=== PATIENT | female | born 1965 | race Caucasian/White ===

== ENCOUNTER → 2016-10-27 | Outpatient (CLI) | payer MEDICAID ==
[~2016-10-27] MED LIST: ABILIFY10 MG OR; ABILIFY20 MG PO; ABILIFY5 MG PO; ACETAMINOPHEN325 M1 PO; ACYCLOVIR800 MG PO; AEROCHAMBER1 DEV IH; ALBUTEROL2 PUFFS/17 IN; AMITRIPTYLINE 225 MG PO; AMOXIL500 MG PO; APAP/BUTALBITAL1 TA1 PO; ATIVAN GENERIC0.5 MG PO; ATIVAN1 MG PO; AZITHROMYCIN250 MG PO; BACTRIM 400 MG-1 TAB PO; BACTRIM DS 8001 TA1 PO; BACTRIM DS 8001 TAB PO; BENADRYL25 M1 PO; BENZONATATE100 MG PO; CIPRO 500MG TA500 MG PO; CYCLOBENZ5 MG PO; CYCLOBENZAPRINE10 M1 OR; DARVOCET-N 1001 EACH PO; DIAZEPAM2 M1 PO; DICLOFENAC SODI75 M3 PO; EC NAPROSYN500 MG PO; ESCITALOPRAM20 MG PO; ETODOLAC400 MG PO; FLEXERIL10 MG PO; GABAPENTIN 600600 MG PO; ICY HOT1 CRE TP; KEFLEX 500MG.500 MG PO; LASIX20 MG PO; LISINOPRIL/HCTZ1 TA3 PO; LODINE200 MG PO; LORTAB 5/3251 TAB PO; LORTAB 5/500 501 TAB PO; LORTAB 500 MG-71 TAB; LOVASTATIN20 MG PO; MEDROL 4MG. DOSE4 MG PO; MELOXICAM7.5 MG PO; MOBIC7.5 MG PO; MOTRIN800 MG PO; NAPROSYN 500MG500 MG PO; NORCO 325 MG-51 TAB PO; ONDANSETRON8 MG PO; PHENERGAN 25MG.25 M1 PO; PHENTERMINE37.5 MG PO; PREDNISONE 10MG10 MG PO; PREDNISONE 20MG20 MG PO; PREDNISONE50 MG PO; ROBAXIN 500 MG500 MG PO; TESSALON PERLE100 M1 PO; TESSALON PERLE100 MG PO; TORADOL10 M1 PO; TRAMADOL 50MG T50 M1 PO; TRAMADOL 50MG T50 MG PO; ULTRAM 50 MG TA50 MG PO; ULTRAM50 MG PO; VIBRAMYCIN 100100 MG PO; VICODIN 5/500 T1 TAB PO; VISTARIL50 MG PO; VITAMIN D50000 IU PO; VOLTAREN75 MG PO; ZITHROMAX Z PA250 MG PO; ZOFRAN ODT4 MG PO; Zofran4 MG PO
--- NOTE | 2016-10-27 16:58 | RADIOLOGY REPORT PS360 ---
PROCEDURE: 2-D M-mode and color Doppler study INDICATIONS FOR THE TEST: Chest pain COPD Heart MurmurX Tobacco SmokingX Palpitations Fatigue Syncope Edema Hypertension Diabetes Mellitus Rheumatic Fever SOB STEVEN Obesity HyperlipidemiaXX Family History HD Additional History PATIENT INFORMATION HEIGHT: 64 WEIGHT:150 GENDER: Female B/P:119/74 2-D/M-MODE INTERPRETATION: 2-D MEASUREMENTS OBSERVED VALUES IN CMS Right Ventricular Dimension (RVDd) 1.9 Interventricular Septum (Thickness)(IVsd) 1.1 Left Ventricular Internal Dimensions(LVIDd) 4.9 Left Ventricular Posterior Wall (Thickness)(LVPWd) 1.0 Aortic Root 2.4 Aortic Cusp Separation 1.6 Left Atrial Dimensions (LAD) 3.2 2D 1. The left atrium is normal size, left ventricle is normal size, there is no concentric left ventricular hypertrophy, visually estimated ejection fraction 55% with no obvious regional wall motion abnormality. 2. The right atrium and right ventricle are normal size and contractility. 3. The aortic valve is minimally thickened and calcified there is no aortic stenosis. 4. The mitral and tricuspid valve is structurally normal. 5. The pulmonic valve is not well visualized. 6. No significant pericardial effusion noted. DOPPLER INTERROGATION: Doppler interrogation of the aortic mitral and tricuspid valvular presence of mild mitral and trace tricuspid regurgitation, tricuspid and enteric velocity insufficient for calculation of the right ventricular systolic pressure, diastolic parameters are within normal range. CONCLUSION: 1. Normal left ventricular size, preserved left ventricular systolic function, visually estimated ejection fraction of 55% with no obvious regional wall motion abnormality. Diastolic parameters are within normal range. 2. Mildly thickened and calcified aortic valve without aortic stenosis or aortic insufficiency. 3. Mild mitral and tricuspid regurgitation. 4. No significant pericardial effusion noted.
== END ==
LOC: RT 07:58
DX: R01.1 Cardiac murmur, unspecified (principal); E78.5 Hyperlipidemia, unspecified; Z72.0 Tobacco use

== ENCOUNTER → 2016-12-04 | Outpatient (CLI) | payer MEDICAID ==
[2016-12-04 16:49] LABS: AMPHETAMINES/METAMPHETAMINES NEGATIVE ng/mL (<1000)
== END ==
LOC: LAB 16:17
PROVIDERS: Nurse Practitioner Family
DX: Z79.899 Other long term (current) drug therapy (principal)

== ENCOUNTER 2017-05-29 21:54 | Emergency (ER) | payer SELFPAY ==
[~2017-05-29] VITALS: Ht 165.1 cm; Wt 68.0 kg
[2017-05-29] MEDS ORDERED: REQUIP 1 MG TABL1 MG FT (22:08)
[2017-05-29 22:19] LABS: HEMOGLOBIN 12.9 g/dL (12.2-16.2); LYMPH # 3.3 K/mm3 (0.7-4.5); LYMPH % 43.1 % (10-50.0)
[2017-05-29 22:20] LABS: URINE BILIRUBIN - DIPSTICK NEGATIVE (NEG); URINE BLOOD NEGATIVE (NEG)
--- OUTSIDE RECORDS SUMMARY | 2017-05-29 22:22 | External Medical Summary Rpt | CCD ---
Author Author , DIVYA STOKES Address Unknown Phone [email or web address] Care Team Providers Care Linderman Machine Operator Name Role Phone Lius Gomez MD, Unavailable Unavailable Luis LIRA MD, Unavailable Unavailable JENNA Summers MD, Unavailable Unavailable Jaren NARANJO, Unavailable Unavailable JAIRO Naranjo Unavailable Unavailable MELITON [facility], Jairo Naranjo III, MD Purpose Continuity of Care Document - 09-04-2012 through 2016 Problems Code Diagnosis DOS Provider Status 305.1 305.1 07-23-2013 [place] TOBACCO USE [facility] 401.9 401.9 07-23-2013 [place] HYPERTENSIO [facility] N [facility] 790.8 790.8 07-23-2013 [place] VIREMIA NOS [facility] V14.8 V14.8 07-23-2013 [place] HX-DRUG [facility] ALLERGY [facility] 724.3 724.3 07-09-2013 [place] SCIATICA [facility] 272.4 272.4 05-17-2013 [place] HYPERLIPIDE [facility] NEC/NOS Hospital 413.9 413.9 05-17-2013 [place] ANGINA [facility] PECTORIS [facility] NEC/NOS 784.0 784.0 05-17-2013 [place] HEADACHE [facility] V58.69 V58.69 OTH 05-17-2013 [place] MED,LT,YAN [facility] ENT USE Hospital 311 311 02-13-2013 [place] DEPRESSIVE [facility] DISORDER [facility] 719.45 719.45 02-13-2013 [place] JOINT [facility] PAIN-PELVIS Hospital 558.9 558.9 01-27-2013 [place] NONINF [facility] V14.5 V14.5 01-27-2013 [place] HX-NARCOTIC [facility] 789.01 789.01 10-10-2012 [place] ABDOMINAL [facility] PAIN, RIGHT Hospital UPPER QUADRANT 461.9 461.9 ACUTE 10-02-2012 [place] SINUSITIS [facility] 491.22 491.22 10-02-2012 [place] OBSTRUCTIVE [facility] CHRONIC [facility] BRONCHITIS WITH ACUTE BRONCHITIS 729.5 729.5 PAIN 09-04-2012 [place] IN LIMB [facility] G50.0 TRIGEMINAL NEURALGIA N23 UNSPECIFIED RENAL COLIC N39.0 URINARY TRACT INFECTION, SITE NOT SPECIFIED R20.0 ANESTHESIA OF SKIN Allergies, Adverse Reactions, Alerts Type Drug Allergy Adverse Reaction to Substance Substance Reaction Severity Codeine Z-[id number]/THROAT Severe Medications Na ND Rx Da Fi Fi Am Da Di Ph RX Ph St me C No te ll ll ou ys ag ar # ys at rm s nt no ma ic us Or Da si cy ia de te s n re d IN 51 12 0 No DO 07 -2 ME 90 8- Lo TH 19 20 ng AC 02 13 er IN 0 Ac 25 ti ve MG CA PS UL E AP 00 12 0 No AP 40 -2 /H 60 8- Lo YD 36 20 ng RO 56 13 er CO 2 DO Ac NE ti ve 32 5 MG -5 MG KE 00 11 0 No TO 40 -0 RO 93 5- Lo LA 79 20 ng C 50 13 er 30 1 Ac MG ti /M ve L AL TR 00 11 0 No AM 09 -0 AD 30 5- Lo OL 05 20 ng 80 13 er 50 1H MG Ac ti TA ve BL ET TA KE HO ME NC 50 08 0 No ED 38 -0 NI 30 4- Lo SO 04 20 ng LO 22 13 er NE 4 Ac 15 ti ve MG /[address] TR 00 08 0 No AM 09 -0 AD 30 4- Lo OL 05 20 ng 80 13 er 50 1H MG Ac ti TA ve BL ET TA KE HO ME NC 00 04 0 No ED 05 -0 NI 40 6- Lo SO 01 20 ng NE 82 13 er 0 20 Ac ti MG ve TA BL ET AP 00 04 0 No AP 40 -0 /H 60 6- Lo YD 36 20 ng RO 56 13 er CO 2 DO Ac NE ti ve 32 5 MG -5 MG MA 00 03 0 No PA 90 -3 P 41 1- Lo 32 98 20 ng 5 26 13 er MG 1 Ac TA ti BL ve ET HY [address] 07 -3 OC 90 1- Lo OD 78 20 ng ON 09 13 er E/ 9H AP Ac AP ti ve 5/ 50 0M G TA KE AZ 59 03 0 No IT 76 -2 HR 23 3- Lo OM 06 20 ng YC 00 13 er IN 3 Ac 25 ti 0 ve MG TA BL ET Vital Signs 07-23-2013 15:45 Name Value Interpretat Reference Comment ion Range Body 98.5 [degF] Temperature BP 105 mm[Hg] Diastolic BP Systolic 145 mm[Hg] Heart 95 /min Rate/Pulse O2% 95 % Respiratory 20 /min Rate 07-23-2013 15:13 Name Value Interpretat Reference Comment ion Range BP 68 mm[Hg] Diastolic BP Systolic 104 mm[Hg] Heart 95 /min Rate/Pulse O2% 93 % Respiratory 20 /min Rate 07-09-2013 16:00 Name Value Interpretat Reference Comment ion Range BP 82 mm[Hg] Diastolic BP Systolic 129 mm[Hg] Heart 92 /min Rate/Pulse O2% 95 % Respiratory 20 /min Rate 05-17-2013 22:50 Name Value Interpretat Reference Comment ion Range Body 98.6 [degF] Temperature BP 75 mm[Hg] Diastolic BP Systolic 159 mm[Hg] Heart 82 /min Rate/Pulse O2% 95 % Respiratory 20 /min Rate 05-17-2013 22:06 Name Value Interpretat Reference Comment ion Range BP 75 mm[Hg] Diastolic BP Systolic 159 mm[Hg] Heart 82 /min Rate/Pulse O2% 95 % Respiratory 20 /min Rate 02-13-2013 19:35 Name Value Interpretat Reference Comment ion Range BP 94 mm[Hg] Diastolic BP Systolic 132 mm[Hg] Heart 75 /min Rate/Pulse O2% 98 % Respiratory 16 /min Rate 02-13-2013 18:17 Name Value Interpretat Reference Comment ion Range BP 78 mm[Hg] Diastolic BP Systolic 128 mm[Hg] Heart 77 /min Rate/Pulse O2% 97 % Respiratory 20 /min Rate 01-27-2013 09:47 Name Value Interpretat Reference Comment ion Range BP 57 mm[Hg] Diastolic BP Systolic 114 mm[Hg] Heart 92 /min Rate/Pulse O2% 94 % Respiratory 20 /min Rate 10-16-2012 22:12 Name Value Interpretat Reference Comment ion Range Body 98.1 [degF] Temperature BP 77 mm[Hg] Diastolic BP Systolic 127 mm[Hg] Heart 90 /min Rate/Pulse O2% 98 % Respiratory 18 /min Rate 10-16-2012 22:03 Name Value Interpretat Reference Comment ion Range BP 77 mm[Hg] Diastolic BP Systolic 127 mm[Hg] Heart 90 /min Rate/Pulse O2% 98 % Respiratory 18 /min Rate 10-10-2012 03:06 Name Value Interpretat Reference Comment ion Range BP 94 mm[Hg] Diastolic BP Systolic 135 mm[Hg] Heart 97 /min Rate/Pulse O2% 96 % Respiratory 20 /min Rate 10-10-2012 02:03 Name Value Interpretat Reference Comment ion Range BP 70 mm[Hg] Diastolic BP Systolic 114 mm[Hg] Heart 98 /min Rate/Pulse O2% 97 % Respiratory 20 /min Rate 10-02-2012 00:28 Name Value Interpretat Reference Comment ion Range Body 98.8 [degF] Temperature BP 89 mm[Hg] Diastolic BP Systolic 147 mm[Hg] Heart 102 /min Rate/Pulse O2% 96 % Respiratory 16 /min Rate 10-01-2012 22:02 Name Value Interpretat Reference Comment ion Range Body 98.9 [degF] Temperature BP 92 mm[Hg] Diastolic BP Systolic 133 mm[Hg] Heart 91 /min Rate/Pulse O2% 97 % Respiratory 16 /min Rate 09-04-2012 10:48 Name Value Interpretat Reference Comment ion Range BP 82 mm[Hg] Diastolic BP Systolic 127 mm[Hg] Heart 105 /min Rate/Pulse O2% 96 % Respiratory 20 /min Rate Results Labs Lab Lab Date Result Refere Interp Status Commen Order Detail nces retati t Range on Bacteria Ur Cult (02-16-2017 16:11) Bacteri [id number] complet a XXX 017 07 ed Anaerob 16:11 Escheri e+Aerob sushila e Cult coli (organi sm) SCT ECOL ESCHERI SUSHILA COLI L Comment: >100,000 cfu/ml Escherichia coli (organism) CC XXX NOTAP complet VC-aCnc 017 NOT ed 16:11 APPLICA BLE L Drugs identified in Urine by Screen method (12-04-2016 13:51) Ampheta NEGATIV <1000 complet mine 017 E ed [Presen 13:51 ce] in Urine by Screen method 11-Hydr NEGATIV <50 complet oxy 017 E ed delta-9 13:51 tetrahy drocann abinol [Presen ce] in Unspeci fied specime n URINALYSIS/COMPLETE (07-09-2013 15:07) URINE YELLOW YELLOW complet COLOR 013 ed 15:07 URINE Sl CLEAR complet APPEARA 013 Cloudy ed NCE 15:07 URINE NEGATIV NEG complet GLUCOSE 013 E ed - 15:07 DIPSTIC K URINE NEGATIV NEG complet BILIRUB 013 E ed IN - 15:07 DIPSTIC K URINE NEGATIV NEG complet KETONE 013 E mg/dL ed 15:07 URINE 1.025 1.005-1 complet SPECIFI 013 UNK .030 ed C 15:07 GRAVITY URINE NEGATIV NEG complet BLOOD 013 E ed 15:07 URINE 6.0 UNK 5.0-8.5 complet PH 013 ed 15:07 URINE NEGATIV NEG complet PROTEIN 013 E mg/dL ed - 15:07 DIPSTIC K URINE 0.2 NEG complet UROBILI 013 E.U./dL ed NOGEN - 15:07 DIPSTIC K URINE NEGATIV NEG complet NITRATE 013 E ed - 15:07 DIPSTIC K URINE NEGATIV NEG complet LEUK 013 E ed ESTERAS 15:07 E URINE OCC 0-5 complet SQUAMOU 013 #/hpf ed S CELLS 15:07 URINE TRACE O complet BACTERI 013 ed A 15:07 CBC with AUTO DIFF (05-17-2013 22:15) WBC # 05-17- 8.8 4.8-10. complet Bld 013 K/MM3 8 ed Auto 22:15 RBC # 4.77 4.2-5.4 complet Bld 013 M/mm3 ed Auto 22:15 Hgb 13.7 12.2-16 complet Bld-mCn 013 g/dL .2 ed c 22:15 Hct Fr 41.4 % 37.0-47 complet Bld 013 .0 ed 22:15 MCV RBC 86.9 fl 82.2-97 complet 013 .8 ed 22:15 MCH RBC 11-05-2 28.7 pg 27-31.2 complet Qn 013 ed Auto 22:15 MEAN 11-05-2 33.1 31.8-35 complet CORPUSC 013 g/dl .4 ed ULAR 22:15 HGB CONC RDW RBC -05-2 14.9 % 11.5-17 complet Auto 013 .5 ed 22:15 Platele 11-05-2 243 142-424 complet t Bld 013 K/mm3 ed Ql 22:15 Manual MEAN 05-2 8.7 fl 7.4-10. complet PLATELE 013 4 ed T 22:15 VOLUME Granulo 11-05-2 59.6 % 37.0-80 complet cytes 013 .0 ed Fr Bld 22:15 Auto LYMPH % 11-05-2 32.8 % 10-50.0 complet 013 ed 22:15 Monocyt 11-05-2 4.3 % 1.7-9.3 complet es Fr 013 ed Bld 22:15 Auto Eosinop 11-05-2 2.6 % 0.1-12. complet hil Fr 013 0 ed Bld 22:15 Auto Basophi 11-05-2 0.7 % 0.1-2.0 complet ls Fr 013 ed Bld 22:15 Auto Granulo 11-05-2 5.3 1.8-7.8 complet cytes # 013 K/mm3 ed Bld 22:15 Auto Lymphoc 11-05-2 2.9 0.7-4.5 complet ytes Fr 013 K/mm3 ed Bld 22:15 Auto Monocyt 11-05-2 0.4 0.1-1.0 complet es # 013 K/mm3 ed Bld 22:15 Auto Eosinop 11-05-2 0.2 0.0-0.4 complet hil # 013 K/mm3 ed Bld 22:15 Auto Basophi 11-05-2 0.1 0-0.2 complet ls # 013 K/MM3 ed Bld 22:15 Auto URINALYSIS/COMPLETE (10-10-2012 02:00) URINE YELLOW YELLOW complet COLOR 013 ed 02:00 URINE CLOUDY CLEAR complet APPEARA 013 ed NCE 02:00 URINE NEGATIV NEG complet GLUCOSE 013 E ed - 02:00 DIPSTIC K URINE NEGATIV NEG complet BILIRUB 013 E ed IN - 02:00 DIPSTIC K URINE NEGATIV NEG complet KETONE 013 E mg/dL ed 02:00 URINE 1.020 1.005-1 complet SPECIFI 013 UNK .030 ed C 02:00 GRAVITY URINE NEGATIV NEG complet BLOOD 013 E ed 02:00 URINE 6.0 UNK 5.0-8.5 complet PH 013 ed 02:00 URINE NEGATIV NEG complet PROTEIN 013 E mg/dL ed - 02:00 DIPSTIC K URINE 0.2 NEG complet UROBILI 013 E.U./dL ed NOGEN - 02:00 DIPSTIC K URINE NEGATIV NEG complet NITRATE 013 E ed - 02:00 DIPSTIC K URINE NEGATIV NEG complet LEUK 013 E ed ESTERAS 02:00 E URINE 20-50 0-5 complet SQUAMOU 013 #/hpf ed S CELLS 02:00 BASIC METABOLIC PANEL (10-10-2012 01:30) Glucose 111 74-106 complet 013 mg/dL ed Bld-mCn 01:30 c BUN 9 mg/dL 7-18 complet Bld-mCn 013 ed c 01:30 Creat 0.9 0.6-1.0 complet SerPl-m 013 mg/dL ed Cnc 01:30 ESTIMAT 94 50-200 complet ED 013 ML/MIN ed CREATIN 01:30 INE CLEARAN CE GFR 67 59- complet (ESTIMA 013 ML/MIN ed SONDRA) 01:30 Sodium 139 136-145 complet SerPl-s 013 mmoL/L ed Cnc 01:30 Potassi 3.8 3.5-5.1 complet um 013 mmoL/L ed SerPl-s 01:30 Cnc Chlorid 104 98-107 complet e 013 mmoL/L ed SerPl-s 01:30 Cnc CO2 27 21.0-32 complet SerPl-s 013 mmoL/L .0 ed Cnc 01:30 Calcium 10-10-2 8.9 8.5-10. complet 013 mg/dL 1 ed SerPl-m 01:30 Cnc LIVER PROFILE (10-10-2012 01:30) Prot 10-10-2 7.0 6.4-8.2 complet SerPl-m 013 gm/dL ed Cnc 01:30 Albumin 31-2 3.4 3.4-5.0 complet 013 gm/dL ed SerPl-m 01:30 Cnc Bilirub -31-2 0.2 0.2-1.0 complet 013 mg/dL ed SerPl-m 01:30 Cnc Bilirub 31-2 Less 0.0-0.2 complet Direct 013 than ed 01:30 0.1 SerPl-m mg/dL Cnc BILIRUB 10-10-2 0.2 0-0.9 complet IN, 013 mg/dL ed INDIREC 01:30 T AST 10-10-2 27 U/L 15-37 complet SerPl-c 013 ed Cnc 01:30 ALT 10-10-2 41 U/L 30-65 complet SerPl-c 013 ed Cnc 01:30 ALP 10-10-2 172 U/L 50-136 complet SerPl-c 013 ed Cnc 01:30 Amylase SerPl-cCnc (10-10-2012 01:30) Amylase 10-10-2 38 U/L 25-115 complet 013 ed SerPl-c 01:30 Cnc LIPASE (10-10-2012 01:30) LIPASE 10-10-2 257 U/L 73-393 complet 013 ed 01:30 CBC with AUTO DIFF (10-10-2012 01:30) WBC # 10-10-2 10.6 4.8-10. complet Bld 013 K/MM3 8 ed Auto 01:30 RBC # 10-10-2 4.85 4.2-5.4 complet Bld 013 M/mm3 ed Auto 01:30 Hgb 10-10-2 14.5 12.2-16 complet Bld-mCn 013 g/dL .2 ed c 01:30 Hct Fr 10-10- 43.1 % 37.0-47 complet Bld 013 .0 ed 01:30 MCV RBC 10-10-2 88.8 fl 82.2-97 complet 013 .8 ed 01:30 MCH RBC 03-31-2 29.8 pg 27-31.2 complet Qn 013 ed Auto 01:30 MEAN 10-10-2 33.6 31.8-35 complet CORPUSC 013 g/dl .4 ed ULAR 01:30 HGB CONC RDW RBC 31-2 14.2 % 11.5-17 complet Auto 013 .5 ed 01:30 Platele 31-2 335 142-424 complet t Bld 013 K/mm3 ed Ql 01:30 Manual MEAN 10-10-2 8.2 fl 7.4-10. complet PLATELE 013 4 ed T 01:30 VOLUME Granulo 31-2 58.1 % 37.0-80 complet cytes 013 .0 ed Fr Bld 01:30 Auto LYMPH % -31-2 34.1 % 10-50.0 complet 013 ed 01:30 Monocyt -31-2 5.4 % 1.7-9.3 complet es Fr 013 ed Bld 01:30 Auto Eosinop -31-2 1.8 % 0.1-12. complet hil Fr 013 0 ed Bld 01:30 Auto Basophi -31-2 0.6 % 0.1-2.0 complet ls Fr 013 ed Bld 01:30 Auto Granulo -31-2 6.2 1.8-7.8 complet cytes # 013 K/mm3 ed Bld 01:30 Auto Lymphoc -31-2 3.6 0.7-4.5 complet ytes Fr 013 K/mm3 ed Bld 01:30 Auto Monocyt -31-2 0.6 0.1-1.0 complet es # 013 K/mm3 ed Bld 01:30 Auto Eosinop -31-2 0.2 0.0-0.4 complet hil # 013 K/mm3 ed Bld 01:30 Auto Basophi -31-2 0.1 0-0.2 complet ls # 013 K/MM3 ed Bld 01:30 Auto Encounters Encounter Start End Date Code Location Performer Type Date Emergency ELLA LIRA MD (ER) 4 14:44 4 15:48 [facility] ELLA Summers MD (ER) 3 15:08 3 16:01 [facility] ELLA Summers MD (ER) 3 22:12 3 22:50 [facility] ELLA Summers MD (ER) 3 17:36 3 19:38 [facility] ELLA Gomez MD (ER) 3 09:51 3 09:51 [facility] Emergency ELLA Summers MD (ER) 3 20:43 3 22:14 [facility] ELLA Summers MD (ER) 3 01:10 3 03:07 [facility] ELLA Naranjo (ER) 3 22:24 3 00:29 [facility] Emergency ELAL NARANJO (ER) 3 10:23 3 10:49 [facility]
--- OUTSIDE RECORDS SUMMARY | 2017-05-29 22:22 | External Medical Summary Rpt | CCD ---
Author Author , DIVYA STOKES Address Unknown Phone [email or web address] Care Team Providers Care Automobile Brakes Bonder Name Role Phone Luis Gomez MD, Unavailable Unavailable Luis LIRA MD, Unavailable Unavailable JENNA Summers MD, Unavailable Unavailable Jaren NARANJO, Unavailable Unavailable JAIRO Naranjo Unavailable Unavailable MELITON [facility], Jairo Naranjo III, MD Purpose Continuity of Care Document - 09-04-2012 through 2016 Problems Code Diagnosis DOS Provider Status 305.1 305.1 07-23-2013 [place] TOBACCO USE [facility] 401.9 401.9 07-23-2013 [place] HYPERTENSIO [facility] N [facility] 790.8 790.8 07-23-2013 [place] VIREMIA NOS [facility] V14.8 V14.8 07-23-2013 [place] HX-DRUG [facility] ALLERGY [facility] 724.3 724.3 07-09-2013 [place] SCIATICA [facility] 272.4 272.4 05-17-2013 [place] HYPERLIPIDE [facility] NEC/NOS Hospital 413.9 413.9 05-17-2013 [place] ANGINA [facility] PECTORIS [facility] NEC/NOS 784.0 784.0 05-17-2013 [place] HEADACHE [facility] V58.69 V58.69 OTH 05-17-2013 [place] MED,LT,YAN [facility] ENT USE Hospital 311 311 02-13-2013 [place] DEPRESSIVE [facility] DISORDER [facility] 719.45 719.45 02-13-2013 [place] JOINT [facility] PAIN-PELVIS Hospital 558.9 558.9 01-27-2013 [place] NONINF [facility] V14.5 V14.5 01-27-2013 [place] HX-NARCOTIC [facility] 789.01 789.01 10-10-2012 [place] ABDOMINAL [facility] PAIN, RIGHT Hospital UPPER QUADRANT 461.9 461.9 ACUTE 10-02-2012 [place] SINUSITIS [facility] 491.22 491.22 10-02-2012 [place] OBSTRUCTIVE [facility] CHRONIC [facility] BRONCHITIS WITH ACUTE BRONCHITIS 729.5 729.5 PAIN 09-04-2012 [place] IN LIMB [facility] G50.0 TRIGEMINAL NEURALGIA N23 UNSPECIFIED RENAL COLIC N39.0 URINARY TRACT INFECTION, SITE NOT SPECIFIED R20.0 ANESTHESIA OF SKIN Allergies, Adverse Reactions, Alerts Type Drug Allergy Adverse Reaction to Substance Substance Reaction Severity Codeine [id number]-[id number]-SYHP/THROAT Severe Medications Na ND Rx Da Fi [...] ve BL ET TA KE HO ME TX 50 08 0 No ED 38 -0 NI 30 4- Lo SO 04 20 ng LO 22 13 er NE 4 Ac 15 ti ve MG /[address] TR 00 08 0 No AM 09 -0 AD 30 4- Lo OL 05 20 ng 80 13 er 50 1H MG Ac ti TA ve BL ET TA KE HO ME TX 00 04 0 No ED 05 -0 [...] on Bacteria Ur Cult (02-16-2017 16:11) Bacteri [id number] complet a XXX 017 07 ed Anaerob [...] LIRA MD (ER) 4 14:44 4 15:48 [facility] Emergency ELLA Summers MD (ER) 3 15:08 3 16:01 [facility] ELLA Summers MD (ER) 3 22:12 3 22:50 [facility] ELLA Summers MD (ER) 3 17:36 3 19:38 [facility] ELLA Gomez MD (ER) 3 09:51 3 09:51 [facility] Emergency ELLA Summers MD (ER) 3 20:43 3 22:14 [facility] ELLA Summers MD (ER) 3 01:10 3 03:07 [facility] ELLA Naranjo (ER) 3 22:24 3 00:29 [facility] ELLA NARANJO (ER) 3 10:23 3 10:49 [facility]
--- OUTSIDE RECORDS SUMMARY | 2017-05-29 22:23 | External Medical Summary Rpt ---
Author Author DIVYA Sharlene, DIVYA Pl[employer] Organization [employer] Address Unknown Phone Unavailable Results Drugs identified in Urine by Screen method Observa Value Referen Units Interpr Notes Date tion ce etation Range Positive urine drug screen samples are stored for 7 days. Contact the Lab if confirmation of positives is needed. Ampheta NEGATIV <1000 ng/mL No No December 04 mine E informa informa 2016 [Presen tion in tion in 1:51 PM ce] in source source Urine data data by Screen method Barbitura <200 ng/mL No No December 04 demarcus informati informati 2016 1:51 [Mass/vol on in on in PM ume] in source source Urine by data data Screen method Benzodiaz 200 ng/mL ng/mL High This is December 04 epines an 2017 1:51 [Mass/vol UNCONFIRM PM ume] in ED Serum or result. Plasma by This Screen result is method for medicalpu rposes and/or treatment only. Cocaine <300 ng/g No No December 04 [Mass/vol informati informati 2016 1:51 ume] in on in on in PM Unspecifi source source ed data data specimen Methadone <300 ng/mL No No December 04 informati informati 2016 1:51 [Mass/vol on in on in PM ume] in source source Unspecifi data data ed specimen Opiates <300 ng/mL No No December 04 [Mass/vol informati informati 2016 1:51 ume] in on in on in PM Unspecifi source source ed data data specimen Phencycli <25 ng/mL No No December 04 dine informati informati 2016 1:51 [Mass/vol on in on in PM ume] in source source Unspecifi data data ed specimen 11-Hydr NEGATIV <50 ng/mL No No December 04 oxy E informa informa 2017 delta-9 tion in tion in 1:51 PM source source tetrahy data data drocann abinol [Presen ce] in Unspeci fied specime n
--- OUTSIDE RECORDS SUMMARY | 2017-05-29 22:23 | External Medical Summary Rpt | CCD ---
Author Author [employer] Organization [employer] Address Unknown Phone Unavailable Purpose Continuity of Care Document - through 2016
--- OUTSIDE RECORDS SUMMARY | 2017-05-29 22:23 | External Medical Summary Rpt | CCD ---
Demographics Preferred Language Vietnamese Marital Status Unknown Confucianist Affiliation Unknown Race Unknown Ethnic Group Unknown Author Author , DIVYA STOKES Address Unknown Phone Immunization No patient found.
--- OUTSIDE RECORDS SUMMARY | 2017-05-29 22:23 | External Medical Summary Rpt ---
Author Author DIVYA Sharlene, DIVYA [place] [employer] Organization [employer] Address Unknown Phone Unavailable [...]
--- OUTSIDE RECORDS SUMMARY | 2017-05-29 22:23 | External Medical Summary Rpt | CCD ---
Demographics Preferred Language Kinyarwanda Marital Status Unknown Buddhist Affiliation Unknown Race Unknown Ethnic Group Unknown Author Author , DIVYA STOKES Address Unknown Phone Immunization No patient found.
--- NOTE | 2017-05-29 22:30 | Emergency Room Report ---
History of Present Illness Time Seen by [id number] Presenting Problem in Triage Pt arrived:Walked Presenting Problem:C/O KIDNEY PAIN, PT STATES SHE HAS INFLAMMED RT KIDNEY AND HER URETHRA IS TWISTED, PT HAS BEEN SEEN BY DR WRAY AND UROLOGY FOR THIS PROBLEM. 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 N Clinical Suspician of Infection? N Mental Status: 1 - Regular (Normal Baseline) Sepsis Risk:Low Sepsis Risk Have you (or family members/close friends) recently traveled outside the [place]? N If Yes, where/when: Have you had exposure to infectious disease within the past month? N TB? Other? Specify: Source patient, RN notes reviewed, family, old records Exam Limitations no limitations Comment hx of rt flank pain with renal colic - pt with no fever and hematuria Cardiac Chest Pain Chest pain indicative of cardiac No Timing/Duration this evening Severity moderate ALLERGIES Coded Allergies: codeine (Intermediate, I-RASH 08/12/16) Home Medications Reported Medications Diazepam 2 MG PO BID #60 ROPINIROLE HCL (Requip 1 Mg) 1 MG FT DAILY History Medical History General CAD? No Angina: No ND: No Hypertension? No Hyperlipidemia? Yes CHF? No DVT? No PE? No COPD? No Asthma? No Anemia? No GERD? No Gastric ulcers? No GI Bleed? No Hernia? No Thyroid Problems? No Hypothyroidism? No CVA? No Seizures? No Diabetes? No Insulin Dependent: No Insulin Pump: No Home FSBS? No Renal Insuffiency? No End Stage Renal Disease? No UTI? Yes Stones? Yes BPH? No GB Disease: Yes Nephritic Syndrome? No Asplenia? No Hepatitis? No Sickle Cell Disease? No Arthritis? No Migraines? No Cataracts? No Glaucoma? No MRSA? No HIV? No TB? No Anxiety? Yes Depression? Yes Cancer? No More? No Immunization Hx Ped.Immunizations UTD No DT/Tetanus 5-10 Years Ago Flu 2015-FSN Pneumonia Never Had Surgical Hx Previous Surgery?Y Tubal Ligation D AND C GALLBLADDER REMOVED HYSTERECTOMY Appendix REMOVED HEART CATH 10/2009 LESION EXCISION URINARY STENT RENAL STENT 08/07/16 [employer] Hx LMP N/A Family History Family Hx Diabetes Yes CAD Yes Hypertension Yes Hyperlipidemia Yes Cancer Yes TB No Social History Smoking Hx Smoker: Current Every Day Smoker Tobacco: Yes Type Cigarettes Packs/day < 1 Pack Are you/the child exposed to second-hand smoke: No Alcohol Alcohol: No Drugs none Review of Systems All Other Systems Reviewed and Negative Constitutional denies fever Eyes denies drainage ENT denies: ear pain, epistaxis, throat pain. Respiratory denies cough, denies shortness of breath, denies wheezing Cardiovascular denies chest pain, denies palpitations, denies syncope Gastrointestinal denies abdominal pain, denies diarrhea, denies vomiting Genitourinary see HPI. denies: dysuria, frequency, hesitancy, hematuria. Musculoskeletal denies back pain, denies neck pain Skin denies rash Psychiatric/Neurological denies headache, denies seizure Physical Exam Vital Signs Vital Signs Date Time Temp Pulse Resp B/P Pulse O2 O2 Flow FiO2 Ox Delivery Rate 05/29 2159 98.7 72 20 135/80 97 - WBC >12,000 or <4,000 or 10% bands? 2 or more SIRS Criteria Met? B/P:135/80 MAP:98 Creatinine >2.0? UA output<0.5ml/kg/hr for 2 hrs? Platelet count >100,000? Lactate >2.0mmol/1? INR >1.2 or PTT > than 60 sec? Evidence of Organ Dysfunction? Provider documented clinical suspician of infection? N Sepsis Criteria Count: 1 Sepsis Risk: Low Sepsis Risk General Appearance no apparent distress Eye Exam - bilateral eye PERRL, bilateral eye EOMI Ear, Nose, Throat normal ENT inspection Neck supple Respiratory Status No: respiratory distress. 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 No Results/Orders Laboratory Tests 05/29/17 2210: Sodium 140, Potassium 3.3 L, Chloride 104, Carbon Dioxide 30, BUN 13, Creatinine 0.8, Estimated Creat Clear 88, Estimated GFR (MDRD) 75, Glucose 89, Calcium 9.2, Total Bilirubin 0.4, AST 23, ALT 28, Alkaline Phosphatase 114, Total Protein 7.5, Albumin 3.9, Globulin 3.6 H, Albumin/Globulin Ratio 1.1, WBC 7.7, RBC 4.30, Hgb 12.9, Hct 39.3, MCV 91.5, RDW 13.0, Plt Count 201, MPV 8.7, Gran % 46.3, Gran # 3.6, Lymphocytes % 43.1, Monocytes % 5.4, Eosinophils % 4.4, Basophils % 0.7, Lymphocytes # 3.3, Monocytes # 0.4, Eosinophils # 0.3, Basophils # 0.1, PUBS MCHC 32.8, MCH 30.0, Urine Color YELLOW, Urine Appearance CLEAR, Urine pH 7.5, Ur Specific [place] 1.010, Urine Protein NEGATIVE, Urine Ketones NEGATIVE, Urine Blood NEGATIVE, Urine Nitrate NEGATIVE, Urine Bilirubin NEGATIVE, Urine Urobilinogen 0.2, Ur Leukocyte Esterase NEGATIVE, Urine WBC 3-5, Ur Squamous Epith Cells 5-10, Urine Glucose NEGATIVE Current Medication Orders Sig/Ramya Start time Last Medication Dose Route Stop Time Status Admin Sodium Chloride 10 ML PRN PRN 05/29 2215 AC IV 05/30 2211 Orders Procedure Date/time Status DIET-NOTHING BY MOUTH 05/[address] ABD & PELVIS W/O CONTRAST 05/[address] ABD/PELVIS REQ 05/29 2211 Active IV SALINE LOCK 05/29 2211 Active URINALYSIS/COMPLETE 05/29 2211 Complete CBC WITH AUTO DIFF 05/29 2211 Complete CHEM 12 PROFILE 05/29 2211 Complete XRAY/CT/US XRAY/CT/US CT abdomen, pelvis CT interpretation by discussed w/radiologist Time results known: 2317 CT Results abnormal (dil rt urethral) Departure Departure Time of Disposition 2244 Disposition DC Home or Self Care(routine) Clinical Impression Primary Impression: Renal colic on right side Condition STABLE Referrals Miguel A Layne APRN (Family) Patient Instructions Kidney Stones -- Adult Additional Instructions use meds and see urology Discharge Counseling Counseled pt/family regarding diagnosis, test results, medications/RX, follow up needs ED Critical Care Critical Care No at [id number]
[2017-05-29 23:26] VITALS: BP 135/80
--- NOTE | 2017-05-30 10:30 | RADIOLOGY REPORT PS360 ---
CT ABD PELVIS W/O CONTRAST HISTORY: FLANK PAIN FLANK PAIN right flank pain Patient Age: 52 years: Female Ordering Physician: Jaren Summers MD TECHNIQUE: Helical CT scanning performed the abdomen and pelvis with no oral nor IV contrast utilized. Sagittal and coronal reconstructions on CT workstation COMPARISON :10/07/2016 CT abdomen and pelvis without contrast ... Also March 2016 CT abdomen FINDINGS Lower thorax. Lungs clear with nothing definitely acute. Small benign Calcified granulomas at right lung base noted . Heart normal size Abdomen/pelvis.Lack of IV and oral contrast decreases sensitivity Liver. No focal lesions. Slightly dense liver: On this Noncontrast study but does warrant correlation with LFTs and follow-up. I would typically liver average density is 55HU. This patient liver density up to 71. Nonspecific but can be seen with iron storage abnormalities liver Spleen unremarkable. Pancreas unremarkable on this noncontrast study. Gallbladder is been removed. No biliary ductal dilatation. Right kidney. 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 Right ureter only a solitary generous in caliber throughout similar to previous studies. No new findings otherwise today Left kidney. No calculi. No change since 2015. Pelvis. Uterus is been removed. Bladder unremarkable. GI tract. Moderate stool throughout the colon but no bowel dilatation or obstruction. There may be a few scattered diverticuli throughout the colon but no diverticulitis.. Appendix is been removed. Slight hazy appearance through the mesentery as previously seen but warrants correlation with amylase, lipase and abdominal pain currently. Osseous. Degenerative disc changes stable and L5/S1 IMPRESSION: 1. No acute findings. 2. 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 As previously discussed. No calculi. No new findings. The left kidney appears stable no obstruction. 3.. Incidental observation Liver slight increased density throughout. Nonspecific but can't reflect iron storage abnormalities of liver. Correlation required(This minor observation was not noted on [facility] report)* *I would additionally note this patient has had frequent CT studies noting at least at least 11 CT abdomen since 2010 including today's study. Along with multiple other other radiographic studies. Please keep this in mind in determining the need for radiographic studies
== END 2017-05-29 23:27 | disposition home or self-care (01) ==
LOC: ER 21:54
PROVIDERS: Emergency Medicine
DX: N13.2 Hydronephrosis with renal and ureteral calculous obstruction (principal); Z88.6 Allergy status to analgesic agent; E78.5 Hyperlipidemia, unspecified; F41.8 Other specified anxiety disorders; F17.210 Nicotine dependence, cigarettes, uncomplicated